=== PATIENT | female | born 1925 | race Asian ===

== ENCOUNTER 2017-04-13 16:28 | Emergency (ER) | payer MEDICARE, MEDICAID ==
[~2017-04-13] VITALS: Ht 152.4 cm; Wt 53.9 kg
[~2017-04-13 16:28] MED LIST: GLUC1TAB9 PO; HYDR12.58 PO; MULT1TAB60 PO
[2017-04-13] MEDS ORDERED: SODIUM CHLORIDE FLUSH 10ML SYR IVF ONE (17:30)
[2017-04-13] MEDS ORDERED: CEFTRIAXONE PMX 1GM/50ML 50 ML IVPB ONE (17:30)
[2017-04-13 17:36] LABS: BLOOD UREA NITROGEN 15 mg/dL (7-18)
[2017-04-13] MEDS ORDERED: CEFTRIAXONE PMX 1GM/50ML 50 ML ONE (17:41)
[2017-04-13] MEDS ORDERED: POTASSIUM CHLORIDE 20 MEQ TAB.ER.PRT ONE (17:49)
[2017-04-13] MEDS ORDERED: POTASSIUM CHLORIDE 20 MEQ TAB.ER.PRT PO ONE (18:00)
[2017-04-13] MEDS ORDERED: OMNIPAQUE 350 MG/ML, 100ML BOTTLE ONE (19:35)
[2017-04-13 21:12] VITALS: BP 138/58
== END 2017-04-13 21:15 | disposition home or self-care (01) ==
LOC: ED 20:07
DX: K04.7 Periapical abscess without sinus (principal); L03.211 Cellulitis of face; I10 Essential (primary) hypertension
CPT/HCPCS: 36415; 70487; 80048; 82040; 83605; 85025; 87040; 96365; 99285; J0696; Q9967